=== PATIENT | female | born 1965 | race Caucasian/White ===

== ENCOUNTER → 2023-12-11 14:43 | Outpatient (REF) | payer OTHER, SELFPAY | LOC: RAD 14:43 | PROVIDERS: ATTENDING PHYSICIAN Physician Assistant Medical; FAMILY PHYSICIAN Family Medicine | DX: M25.561 Pain in right knee (principal); M25.571 Pain in right ankle and joints of right foot | CPT/HCPCS: 73564; 73610 ==

== ENCOUNTER → 2024-01-23 19:39 | Outpatient (REF) | payer OTHER, SELFPAY | LOC: WDC 19:39 | PROVIDERS: ATTENDING PHYSICIAN Obstetrics & Gynecology | DX: Z12.31 Encounter for screening mammogram for malignant neoplasm of breast (principal) | CPT/HCPCS: 77063; 77067 ==

== ENCOUNTER → 2025-01-23 17:39 | Outpatient (REF) | payer OTHER, SELFPAY | LOC: WDC 17:39 | PROVIDERS: ATTENDING PHYSICIAN Nurse Practitioner Family | DX: Z12.31 Encounter for screening mammogram for malignant neoplasm of breast (principal) | CPT/HCPCS: 77063; 77067 ==